=== PATIENT | male | born 1960 | race Caucasian/White ===

== ENCOUNTER → 2017-09-02 | Outpatient (CLI) | payer BC ==
[2017-09-02 12:44] LABS: ABSOLUTE BASOPHILS # (AUTO) 0.1 10^3/uL (0.0-0.2); ABSOLUTE EOSINOPHILS # (AUTO) 0.5 10^3/uL (0.0-0.6); ABSOLUTE LYMPHOCYTES (AUTO) 2.2 10^3/uL (0.5-4.7); ABSOLUTE MONOCYTES (AUTO) 0.7 10^3/uL (0.1-1.4); ABSOLUTE NEUT (AUTO) 4.3 10^3/uL (1.7-8.2); BASOPHILS % (AUTO) 1.4 % (0-2); HEMATOCRIT 46.8 % (37.9-51.0); HEMOGLOBIN 15.9 g/dL (13.5-17.0); LYMPHOCYTES % (AUTO) 28.6 % (13-45); MEAN CORPUSCULAR HEMOGLOBIN 32.5 pg (27.0-33.4); MEAN CORPUSCULAR VOLUME 96 fl (80-97); MONOCYTES % (AUTO) 8.9 % (3-13); PLATELET COUNT 288 10^3/uL (150-450); RED CELL DISTRIBUTION WIDTH 13.9 % (11.5-14.0); SEGMENTED NEUTROPHILS % (AUTO) 55.1 % (42-78); TOTAL CELLS COUNTED % (AUTO) 100 %; WHITE BLOOD COUNT 7.8 10^3/uL (4.0-10.5)
[2017-09-02 12:59] LABS: APPEARANCE,URINE CLEAR; BILIRUBIN,URINE NEGATIVE (NEGATIVE); COLOR,URINE YELLOW; GLUCOSE, URINE NEGATIVE (NEGATIVE); KETONES,URINE NEGATIVE (NEGATIVE); LEUKOCYTE ESTERASE,URINE NEGATIVE (NEGATIVE); NITRITE,URINE NEGATIVE (NEGATIVE); PROTEIN,URINE NEGATIVE (NEGATIVE); URINE SPECIFIC GRAVITY 1.005; UROBILINOGEN,URINE NEGATIVE mg/dL (<2.0)
[2017-09-02 13:07] LABS: ANION GAP 9 (5-19); BLOOD UREA NITROGEN 7 mg/dL (7-20); CALCIUM 9.8 mg/dL (8.4-10.2); CARBON DIOXIDE 28 mmol/L (22-30); CHLORIDE 104 mmol/L (98-107); GLUCOSE 86 mg/dL (75-110); POTASSIUM 5.3 mmol/L (3.6-5.0); SODIUM 140.6 mmol/L (137-145)
--- NOTE | 2017-09-02 13:35 | RADIOLOGY REPORT (SQ) ---
EXAM DESCRIPTION: CHEST PA/LATERAL COMPLETED DATE/TIME: 09/02/2017 12:22 pm REASON FOR STUDY: PRE OP COMPARISON: None. EXAM PARAMETERS: NUMBER OF VIEWS: two views TECHNIQUE: Digital Frontal and Lateral radiographic views of the chest acquired. RADIATION DOSE: NA LIMITATIONS: none FINDINGS: LUNGS AND PLEURA: No opacities, masses or pneumothorax. No pleural effusion. MEDIASTINUM AND HILAR STRUCTURES: No masses or contour abnormalities. HEART AND VASCULAR STRUCTURES: Heart normal size. No evidence for failure. BONES: No acute findings. HARDWARE: None in the chest. OTHER: No other significant finding. IMPRESSION: NO SIGNIFICANT RADIOGRAPHIC FINDING IN THE CHEST. TECHNICAL DOCUMENTATION: JOB ID: [id number] [employer]- All Rights Reserved Reading location - IP/workstation name: [email or web address]
--- NOTE | 2017-09-02 14:36 | EKG REPORT ---
SEVERITY:- NORMAL ECG - SINUS RHYTHM : Confirmed by: J Carlos Soto MD 02-Sep-2017 14:35:52
== END ==
LOC: OD 11:35
PROVIDERS: ATTEND Orthopaedic Surgery
DX: Z01.818 Encounter for other preprocedural examination (principal)
CPT/HCPCS: 36415; 71046; 80048; 81001; 85025; 93005; 93010

== ENCOUNTER 2017-10-30 13:15 | Emergency (ER) | payer SELFPAY ==
--- NOTE | 2017-10-30 13:51 | ER Document Report ---
ED General - General Mode of Arrival: Ambulatory Information source: Patient TRAVEL OUTSIDE OF THE [place] IN LAST 30 DAYS: No <SORAYA MYERS - Last Filed: 10/30/17 16:00> <CHERRIE EVANS - Last Filed: 10/30/17 16:20> - General Chief Complaint: Sunburn Stated Complaint: SKIN ISSUES Time Seen by Provider: 10/30/17 13:41 Notes: 57 y.o male presents to the ED with sunburn to his bilateral lower extremities. He states that Thursday he was out in the sun all day holding a sign for his work and got burned to his legs. He states this was the first time he wore shorts to work because it was nice and denies taking any medications that would make his skin sensitive to the sun. He denies trying to relieve his sx with ibuprofen or lotions. He denies being able to take a shower or bath because even the water is too painful. He notes some blisters that have already popped and a larger blister to his RLE above the knee. Pt denies any hx of DM, kidney issues or ulcers. (SORAYA MYERS) - Related Data Allergies/Adverse Reactions: No Known Allergies Allergy (Unverified 10/30/17 13:16) Past Medical History - General Information source: Patient - Social History Smoking Status: Current Every Day Smoker Chew tobacco use (# tins/day): No Smoking Education Provided: Yes Frequency of alcohol use: Occasional Drug Abuse: Marijuana Occupation: holds sign outside <SORAYA MYERS - Last Filed: 10/30/17 16:00> - Social History Family History: Reviewed & Not Pertinent <CHERRIE EVANS - Last Filed: 10/30/17 16:20> Review of Systems - Review of Systems Skin: Other - sunburn with blisters <SORAYA MYERS - Last Filed: 10/30/17 16:00> Physical Exam <SORAYA MYERS - Last Filed: 10/30/17 16:00> <CHERRIE EVANS - Last Filed: 10/30/17 16:20> - Vital signs Vitals: Temp Pulse Resp BP Pulse Ox 97.7 F 78 18 133/86 H 98 10/30/17 13:20 10/30/17 13:20 10/30/17 13:20 10/30/17 13:20 10/30/17 13:20 - Notes Notes: PHYSICAL EXAM GENERAL: Alert, interacts well. No acute distress. HEAD: Normocephalic, atraumatic. EYES: Pupils equal, round, and reactive to light. Extraocular movements intact. ENT: Oral mucosa moist, tongue midline. NECK: Full range of motion. Supple. Trachea midline. PSYCH: Normal affect, normal mood. SKIN: Warm, dry, normal turgor. No rashes or lesions noted. Erythema with dark demarcation that stops just below the bilateral knees and above the bilateral ankles consistent with clothing. Sunburn tapers off to the left side of both legs. Erythema is less severe posteriorly. sunburn to LLE with 1st degree burn and 2nd degree burn to RT leg. Small blisters to pt's RT leg, One larger blister , approximately 1.5cm clear fluid filled blister just above his RT patella. Negative nikolsky sign. (SORAYA MYERS) Course <SORAYA MYERS - Last Filed: 10/30/17 16:00> <CHERRIE EVANS - Last Filed: 10/30/17 16:20> - Re-evaluation Re-evalutation: 10/30/17 13:59 There is some blistering to the skin over top of the right patella, no evidence of infection, no evidence of secondary process such as Raygoza-Palomo syndrome. Erythema is limited slowly to the areas of sunburn. Patient is encouraged to use lotions particularly once containing topical anesthetic such as lidocaine or benzocaine. Patient states he cannot afford to buy any lotions or anything else to treat this. Patient actually will be given Dermoplast spray which is a benzocaine spray from here to use on his legs to help decrease some of the pain. (CHERRIE EVANS) - Vital Signs Vital signs: Temp Pulse Resp BP Pulse Ox 98.0 F 74 18 120/76 96 10/30/17 14:57 10/30/17 14:57 10/30/17 14:57 10/30/17 14:57 10/30/17 14:57 Discharge <SORAYA MYERS - Last Filed: 10/30/17 16:00> <CHERRIE EVANS - Last Filed: 10/30/17 16:20> - Discharge Clinical Impression: Sunburn, Sunburn, blistering Condition: Stable Disposition: HOME, SELF-CARE Additional Instructions: Please use the numbing spray that we provided you up to every 4 hours. Do not inhale the spray. Please apply lotion to your legs at least twice a day to keep this ongoing moisturized. Please return to the emergency department for any new or concerning symptoms. Referrals: [facility] [Provider Group] - Follow up as needed Scribe Attestation: 10/30/17 16:20 I personally performed the services described in the documentation, reviewed and edited the documentation which was dictated to the scribe in my presence, and it accurately records my words and actions. (CHERRIE EVANS) Scribe Documentation - Scribe Written by Khari:: Khari Garnica [id number] 10/30/17 acting as scribe for :: Georgi <SORAYA MYERS - Last Filed: 10/30/17 16:00>
[2017-10-30] MEDS ORDERED: BENZOCAINE/MENTHOL AEROSOL SPRAY 56 ML TOP ONE (13:59)
[2017-10-30 15:03] VITALS: BP 120/76
== END 2017-10-30 15:13 | disposition home or self-care (01) ==
LOC: ER 13:15
DX: L55.1 Sunburn of second degree (principal); F17.200 Nicotine dependence, unspecified, uncomplicated
CPT/HCPCS: 99282; J3490

== ENCOUNTER → 2017-12-29 | Outpatient (CLI) | payer MEDICAID ==
[2017-12-29 17:48] LABS: ABSOLUTE BASOPHILS # (AUTO) 0.2 10^3/uL (0.0-0.2); ABSOLUTE EOSINOPHILS # (AUTO) 0.3 10^3/uL (0.0-0.6); ABSOLUTE LYMPHOCYTES (AUTO) 2.2 10^3/uL (0.5-4.7); ABSOLUTE MONOCYTES (AUTO) 0.6 10^3/uL (0.1-1.4); ABSOLUTE NEUT (AUTO) 3.9 10^3/uL (1.7-8.2); BASOPHILS % (AUTO) 2.3 % (0-2); EOSINOPHILS % (AUTO) 4.3 % (0-6); HEMATOCRIT 44.7 % (37.9-51.0); HEMOGLOBIN 15.4 g/dL (13.5-17.0); LYMPHOCYTES % (AUTO) 30.4 % (13-45); MEAN CORPUSCULAR HEMOGLOBIN 32.5 pg (27.0-33.4); MEAN CORPUSCULAR HGB CONC 34.4 g/dL (32.0-36.0); MEAN CORPUSCULAR VOLUME 95 fl (80-97); MONOCYTES % (AUTO) 7.7 % (3-13); PLATELET COUNT 212 10^3/uL (150-450); RED BLOOD COUNT 4.73 10^6/uL (4.35-5.55); RED CELL DISTRIBUTION WIDTH 13.4 % (11.5-14.0); SEGMENTED NEUTROPHILS % (AUTO) 55.3 % (42-78); TOTAL CELLS COUNTED % (AUTO) 100 %; WHITE BLOOD COUNT 7.1 10^3/uL (4.0-10.5)
[2017-12-29 17:53] LABS: APPEARANCE,URINE CLEAR; BILIRUBIN,URINE NEGATIVE (NEGATIVE); COLOR,URINE YELLOW; GLUCOSE, URINE NEGATIVE (NEGATIVE); KETONES,URINE TRACE mg/dL (NEGATIVE); LEUKOCYTE ESTERASE,URINE NEGATIVE (NEGATIVE); NITRITE,URINE NEGATIVE (NEGATIVE); PROTEIN,URINE NEGATIVE (NEGATIVE); URINE SPECIFIC GRAVITY 1.016
[2017-12-29 18:17] LABS: ANION GAP 8 (5-19); BLOOD UREA NITROGEN 11 mg/dL (7-20); CALCIUM 9.5 mg/dL (8.4-10.2); CARBON DIOXIDE 27 mmol/L (22-30); CHLORIDE 104 mmol/L (98-107); GLUCOSE 87 mg/dL (75-110); POTASSIUM 4.3 mmol/L (3.6-5.0); SODIUM 138.9 mmol/L (137-145)
--- NOTE | 2017-12-29 18:21 | RADIOLOGY REPORT (SQ) ---
EXAM DESCRIPTION: CHEST PA/LATERAL COMPLETED DATE/TIME: 12/29/2017 5:29 pm REASON FOR STUDY: PRE-OP COMPARISON: August 2017 EXAM PARAMETERS: NUMBER OF VIEWS: two views TECHNIQUE: Digital Frontal and Lateral radiographic views of the chest acquired. RADIATION DOSE: NA LIMITATIONS: none FINDINGS: LUNGS AND PLEURA: No opacities, masses or pneumothorax. No pleural effusion. There is a m ild nonspecific prominence of interstitial markings. There is evidence for obstructive lung disease. MEDIASTINUM AND HILAR STRUCTURES: No masses or contour abnormalities. HEART AND VASCULAR STRUCTURES: Heart normal size. No evidence for failure. BONES: No acute findings. HARDWARE: None in the chest. OTHER: No other significant finding. IMPRESSION: No significant interval change. No acute findings. Other findings as noted above. TECHNICAL DOCUMENTATION: JOB ID: [id number] [employer]- All Rights Reserved Reading location - IP/workstation name: [email or web address]
--- NOTE | 2017-12-30 00:16 | EKG REPORT ---
SEVERITY:- NORMAL ECG - SINUS RHYTHM : Confirmed by: Mia Bocanegra MD 30-Dec-2017 00:15:35
== END ==
LOC: OD 16:47
PROVIDERS: ATTEND Orthopaedic Surgery
DX: Z01.810 Encounter for preprocedural cardiovascular examination (principal); Z01.812 Encounter for preprocedural laboratory examination; Z01.818 Encounter for other preprocedural examination
CPT/HCPCS: 36415; 71046; 80048; 81001; 85025; 93005; 93010

== ENCOUNTER 2018-01-04 05:21 | Inpatient (IN) | payer MEDICAID ==
[~2018-01-04 05:21] MED LIST: BUPIVACAINE INJ/PF LIPOSOME/PF 266 MG/20 ML SDV INJ PRN; CEFAZOLIN INJ 1 GM VIAL IV PRN; IBUPROFEN 800 MG/NS 250 ML IV PRN; LACTATED RINGERS 1000 ML IV PRN; LANSOPRAZOLE 15 MG TAB.RAP.DR PO PRN; LIDOCAINE 0.5% INJ-PF (5 MG/ML) 50 ML SDV SUBCUT PRN; OXYCODONE HCL SR 10 MG TABLET PO PRN; RINGERS SOLUTION,LACTATED 500 ML IV PRN; SCOPOLAMINE HYDROBROMIDE 1.5 MG PATCH.TD72 TOP PRN; VANCOMYCIN HCL 1,000 MG in DEXTROSE 5%-WATER 250 ML IV PRN
[2018-01-04] MEDS ORDERED: FENTANYL CITRATE INJ/PF 100 MCG/2 ML AMPUL ONE ×2 (06:52→08:07)
[2018-01-04] MEDS ORDERED: DEXMEDETOMIDINE INJ 80 MCG/20 ML VIAL IV ONE (06:53)
[2018-01-04] MEDS ORDERED: PROPOFOL INJ 200 MG/20 ML VIAL IV ONE (06:53)
[2018-01-04] MEDS ORDERED: THROMBIN (BOVINE) 5000 UNIT EPITAXIS KIT ONE (06:53)
[2018-01-04] MEDS ORDERED: MIDAZOLAM 2 MG/2 ML INJ ONE ×2 (06:53→07:42)
[2018-01-04] MEDS ORDERED: ACETAMINOPHEN 1,000 MG/100 ML RTUPB IV ONE (06:53)
[2018-01-04] MEDS ORDERED: TRANEXAMIC ACID INJ/PF 1,000 MG/10 ML SDV IV ONE ×2 (06:53→09:52)
[2018-01-04] MEDS ORDERED: ONDANSETRON HCL INJ/PF 4 MG/2 ML SDV ONE (06:53)
[2018-01-04] MEDS ORDERED: THROMBIN (BOVINE) TOPICAL 20000 UNIT VIAL ONE (06:53)
[2018-01-04] MEDS ORDERED: BUPIVACAINE INJ/PF LIPOSOME/PF 266 MG/20 ML SDV ONE (06:54)
[2018-01-04] MEDS ORDERED: BUPIVACAINE HCL/DEX-WATER/PF 15 MG/2 ML AMPULE ONE (07:06)
[2018-01-04] MEDS ORDERED: ALBUTEROL SULFATE 0.083% NEB 2.5 MG/3 ML AMPUL NEB ONE (07:06)
[2018-01-04] MEDS ORDERED: EPHEDRINE SULFATE INJ 50 MG/1 ML AMPULE ONE (07:42)
[2018-01-04] MEDS ORDERED: MORPHINE SULFATE 10 MG/ML INJ ONE (08:07)
[2018-01-04] MEDS ORDERED: DIPHENHYDRAMINE HCL 50 MG/ML VIAL IV PRN ×2 (08:21→09:19)
[2018-01-04] MEDS ORDERED: OXYCODONE-ACETAMINOPHEN 5-325 MG TABLET PO PRN ×2 (08:21)
[2018-01-04] MEDS ORDERED: PROMETHAZINE HCL INJ 25 MG/1 ML VIAL IV PRN ×2 (08:21)
[2018-01-04] MEDS ORDERED: MEPERIDINE HCL/PF INJ 25 MG/1 ML DISP.SYRIN IV PRN (08:21)
[2018-01-04] MEDS ORDERED: ONDANSETRON HCL INJ/PF 4 MG/2 ML SDV IV PRN ×2 (08:21→09:19)
[2018-01-04] MEDS ORDERED: MORPHINE SULFATE 10 MG/ML INJ IV PRN ×3 (08:21→09:19)
[2018-01-04] MEDS ORDERED: FENTANYL CITRATE INJ/PF 100 MCG/2 ML AMPUL IV PRN ×3 (08:21)
[2018-01-04] MEDS ORDERED: ZOLPIDEM TARTRATE 5 MG TABLET PO PRN (09:19)
[2018-01-04] MEDS ORDERED: RINGERS SOLUTION,LACTATED 1,000 ML IV PRN (09:19)
[2018-01-04] MEDS ORDERED: ONDANSETRON 4 MG TAB.RAPDIS PO PRN (09:19)
[2018-01-04] MEDS ORDERED: MAG HYDROX/AL HYDROX/SIMETH SUSP 30 ML UDCUP PO PRN (09:19)
[2018-01-04] MEDS ORDERED: MORPHINE SULFATE 10 MG/ML INJ IM PRN (09:19)
[2018-01-04] MEDS ORDERED: ACETAMINOPHEN 325 MG TABLET PO PRN (09:19)
--- NOTE | 2018-01-04 09:19 | Operative Report ---
Operative Report DATE OF SURGERY: 01/04/18 PREOPERATIVE DIAGNOSIS: Status post open reduction internal fixation right proximal femur fracture with posttraumatic arthrosis OPERATION: Right hip conversion arthroplasty. Sciatic neural lysis SURGEON: GERONIMO HORNER ANESTHESIA: GA TISSUE REMOVED OR ALTERED: Cultures 2 to microbiology. Bone to pathology. Implant to CSS ESTIMATED BLOOD LOSS: 200 PROCEDURE: Implants used: Tate modular protestant stem 20 mm x 155 mm, 23 standard proximal body, 36 mm chrome cobalt head +5 neck, Tate hemispherical acetabular shell 60 mm, 36 mm flat cross-link polyethylene liner With the patient in a left lateral decubitus position on the operative table the right lower extremity hindquarter prepped and draped in a sterile fashion. A curvilinear incision was made incorporating a previous lateral approach to the proximal femur. Sharp dissection used to carry the incision through the iliotibial band. The underlying vastus lateralis is elevated anteriorly. The sciatic nerve is traced from the sciatic notch down to the gluteal sling. The nerve is protected throughout the case. The underlying plate is visible. Cultures are sent of the soft tissue surrounding the plate. There are 4 bicortical screws holding the plate in place. 3 of these are uneventfully removed with screwdrivers. One the head is broken. Subsequently the proximal screw was removed as is the plate. The broken screws is trephined out. The femoral head is dislocated and transected using an oscillating saw. Attention was next turned to the acetabulum. There is a superior read rim defect. Soft tissues cleared off the rim the osteotomy using a sharp blade. Subsequently asked times. Using a series hemispherical reamers until a 60 mm reamer is seated. A 60 mm hemispherical cup was impacted into position and secured with one screw. A 36 mm flat cross-link polyethylene liner is placed. Attention is now turned to the femur. Access is gained to the femoral canal using a box osteotome through the piriformis fossa. The femur was then prepared using series of conical reamers until a 20 mm conical reamer seated. Subsequently Tate modular protestant stem 1 55 mm x 20 mm is impacted down the canal. The proximal femur is then prepared using the appropriate reamers. A trial reduction was now performed with a 23 mm standard proximal body and a 36 mm head. This leaves the leg slightly short compared to the contralateral extremity provides excellent anterior posterior stability. Trial implants were removed. The final 23 mm standard proximal body is impacted onto the trunnion and approximately 20 of anteversion. The 36 mm chrome cobalt head +5 neck extension is an impacted onto the trunnion. The hip was reduced. The wound is justin here with pulse lavage. Is subsequently closed in layers with interrupted Vicryl followed by debbie. A sterile compressive dressing was applied and the patient's return to PACU in satisfactory condition.
[2018-01-04] MEDS: FENTANYL CITRATE INJ/PF 100 MCG/2 ML AMPUL ONE ×2 (09:49→09:59)
[2018-01-04] MEDS: HYDROMORPHONE HCL INJ/PF 2 MG/ML AMPULE ONE ×2 (10:20→10:30)
--- NOTE | 2018-01-04 10:25 | RADIOLOGY REPORT (SQ) ---
EXAM DESCRIPTION: PELVIS AP COMPLETED DATE/TIME: 01/04/2018 10:05 am REASON FOR STUDY: Post Op Long Cassette in PACU M16.11 UNILATERAL PRIMARY OSTEOARTHRITIS, RIGHT HI P COMPARISON: None. NUMBER OF VIEWS: One view TECHNIQUE: Digital radiographic images of the pelvis post-procedure LIMITATIONS: None. FINDINGS: BONES: No worrisome or unexpected findings post-procedure. DEVICE: Right total hip replacement. Components of the device in appropriate location. SOFT TISSUES: No worrisome findings. Expected postoperative soft tissue changes. IMPRESSION: SATISFACTORY POSTOPERATIVE PELVIS. TECHNICAL DOCUMENTATION: JOB ID: [id number] [employer]- All Rights Reserved Reading location - IP/workstation name: [email or web address]
[2018-01-04] MEDS ORDERED: NICOTINE 21 MG/24 HR PATCH.TD24 TD ONE ×2 (11:30→18:00)
[2018-01-04] MEDS: MORPHINE SULFATE 10 MG/ML INJ IV PRN ×3 (13:32→21:05)
[2018-01-04] MEDS ORDERED: DEXAMETHASONE SOD PHOSPHATE INJ 4 MG/1 ML VIAL ONE (13:55)
[2018-01-04] MEDS ORDERED: SUCCINYLCHOLINE CHLORIDE INJ 200 MG/10 ML VIAL ONE (13:55)
[2018-01-04] MEDS: IBUPROFEN 800 MG in NORMAL SALINE 250 ML IV SCH (18:25)
[2018-01-04] MEDS: OXYCODONE HCL SR 10 MG TABLET PO SCH (21:07)
[2018-01-04] MEDS: PREGABALIN 75 MG CAPSULE PO SCH (21:08)
[2018-01-04] MEDS: PRENATAL VITAMIN W DHA CAPSULE PO SCH (21:22)
[2018-01-04] MEDS ORDERED: VANCOMYCIN HCL 1,000 MG in DEXTROSE 5%-WATER 250 ML IV ONE (21:30)
[2018-01-04] MEDS: SENNOSIDES/DOCUSATE 8.6-50 MG 1 EACH TABLET PO SCH (22:06)
[2018-01-05] MEDS: MORPHINE SULFATE 10 MG/ML INJ IV PRN ×3 (04:07→20:16)
[2018-01-05] MEDS: IBUPROFEN 800 MG in NORMAL SALINE 250 ML IV SCH ×3 (04:10→15:40)
[2018-01-05] MEDS: LANSOPRAZOLE 30 MG TAB.RAP.DR PO SCH (05:33)
--- NOTE | 2018-01-05 06:32 | PDOC PROGRESS REPORT ---
Subjective Progress Note for:: 01/05/18 Reason For Visit: M16.11 UNILATERAL PRIMARY OSTEOARTHRITIS, RIGHT HI 57-year-old white male with a posttraumatic osteoarthritis of the right hip postop day 1 status post conversion arthroplasty to total hip. Patient with issues of pain yesterday but seems to be much more comfortable this morning. Physical Exam Vital Signs: Temp Pulse Resp BP Pulse Ox 36.7 C 74 16 122/64 98 01/04/18 23:54 01/04/18 23:54 01/04/18 23:54 01/04/18 23:54 01/04/18 23:54 Intake & Output 01/03/18 01/04/18 01/05/18 06:59 06:59 06:59 Intake Total 500 6242 Output Total 6250 Balance 500 -8 Weight 70.6 kg General appearance: PRESENT: no acute distress, mild distress Head exam: PRESENT: normocephalic Respiratory exam: PRESENT: unlabored Cardiovascular exam: PRESENT: RRR Pulses: PRESENT: +1 pedal pulses bilateral Vascular exam: PRESENT: normal capillary refill GI/Abdominal exam: PRESENT: soft Rectal exam: PRESENT: deferred Extremities exam: PRESENT: other - Right hip dressing with minimal drainage. Small residual leg length inequality. Distal neurovascular examination is intact. Results Laboratory Results: 01/04/18 05:45 Blood Type A POSITIVE Antibody Screen NEGATIVE Impressions: Pelvis X-Ray 01/04/18 09:21 IMPRESSION: SATISFACTORY POSTOPERATIVE PELVIS. Status: Imported from PACS Assessment & Plan - Diagnosis (1) Arthritis of right hip Is this a current diagnosis for this admission?: Yes Plan: Patient will continue with physical therapy and weightbearing as tolerated amatory program. Anticipate discharge home tomorrow with home health services and DME - Time Time Spent with patient: 15-24 minutes Anticipated discharge: Home with Homehealth Within: within 24 hours
[2018-01-05 06:42] LABS: HEMATOCRIT 32.6 % (37.9-51.0); HEMOGLOBIN 11.4 g/dL (13.5-17.0); MEAN CORPUSCULAR HEMOGLOBIN 33.5 pg (27.0-33.4); MEAN CORPUSCULAR VOLUME 96 fl (80-97); PLATELET COUNT 175 10^3/uL (150-450); RED CELL DISTRIBUTION WIDTH 13.5 % (11.5-14.0); WHITE BLOOD COUNT 9.2 10^3/uL (4.0-10.5)
[2018-01-05 06:55] LABS: BLOOD UREA NITROGEN 8 mg/dL (7-20); CALCIUM 8.7 mg/dL (8.4-10.2); CARBON DIOXIDE 30 mmol/L (22-30); GLUCOSE 100 mg/dL (75-110); POTASSIUM 4.3 mmol/L (3.6-5.0)
[2018-01-05 07:01] LABS: CHLORIDE 106 mmol/L (98-107); SODIUM 140.1 mmol/L (137-145)
[2018-01-05 07:09] LABS: ANION GAP 4 (5-19)
[2018-01-05] MEDS: OXYCODONE HCL SR 10 MG TABLET PO SCH ×2 (10:43→21:40)
[2018-01-05] MEDS: NICOTINE 21 MG/24 HR PATCH.TD24 TD SCH (10:44)
[2018-01-05] MEDS: PRENATAL VITAMIN W DHA CAPSULE PO SCH (10:44)
[2018-01-05] MEDS: SENNOSIDES/DOCUSATE 8.6-50 MG 1 EACH TABLET PO SCH ×2 (10:44→19:06)
[2018-01-05] MEDS: ASPIRIN 81 MG TABLET, ENT COATED PO SCH (10:44)
[2018-01-05] MEDS: PREGABALIN 75 MG CAPSULE PO SCH ×2 (10:44→21:40)
[2018-01-05] MEDS: OXYCODONE HCL IR 5 MG TABLET PO PRN (15:39)
[2018-01-06] MEDS: OXYCODONE HCL IR 5 MG TABLET PO PRN ×4 (00:02→21:11)
[2018-01-06] MEDS: MORPHINE SULFATE 10 MG/ML INJ IV PRN ×3 (05:10→23:22)
[2018-01-06] MEDS: LANSOPRAZOLE 30 MG TAB.RAP.DR PO SCH (05:11)
[2018-01-06 06:31] LABS: HEMATOCRIT 31.1 % (37.9-51.0); HEMOGLOBIN 11.1 g/dL (13.5-17.0); MEAN CORPUSCULAR HEMOGLOBIN 33.8 pg (27.0-33.4); MEAN CORPUSCULAR HGB CONC 35.7 g/dL (32.0-36.0); MEAN CORPUSCULAR VOLUME 95 fl (80-97); PLATELET COUNT 163 10^3/uL (150-450); RED BLOOD COUNT 3.29 10^6/uL (4.35-5.55); RED CELL DISTRIBUTION WIDTH 13.7 % (11.5-14.0); WHITE BLOOD COUNT 9.7 10^3/uL (4.0-10.5)
[2018-01-06] MEDS: NICOTINE 21 MG/24 HR PATCH.TD24 TD SCH (09:15)
[2018-01-06] MEDS: PRENATAL VITAMIN W DHA CAPSULE PO SCH (09:16)
[2018-01-06] MEDS: SENNOSIDES/DOCUSATE 8.6-50 MG 1 EACH TABLET PO SCH ×2 (09:16→18:47)
[2018-01-06] MEDS: PREGABALIN 75 MG CAPSULE PO SCH ×2 (09:16→21:11)
[2018-01-06] MEDS: ASPIRIN 81 MG TABLET, ENT COATED PO SCH (09:16)
[2018-01-06] MEDS: OXYCODONE HCL SR 10 MG TABLET PO SCH (09:16)
[2018-01-06] MEDS: IBUPROFEN 800 MG in NORMAL SALINE 250 ML IV SCH ×3 (09:21)
[2018-01-07] MEDS: MORPHINE SULFATE 10 MG/ML INJ IV PRN ×5 (02:40→20:49)
[2018-01-07] MEDS: OXYCODONE HCL IR 5 MG TABLET PO PRN ×3 (04:35→18:37)
[2018-01-07] MEDS: LANSOPRAZOLE 30 MG TAB.RAP.DR PO SCH (05:26)
--- NOTE | 2018-01-07 06:43 | PDOC PROGRESS REPORT ---
Subjective Progress Note for:: 01/07/18 Reason For Visit: M16.11 UNILATERAL PRIMARY OSTEOARTHRITIS, RIGHT HI 57-year-old white male postop day 3 status post conversion right hip arthroplasty. Physical Exam Vital Signs: Temp Pulse Resp BP Pulse Ox 38.0 C 83 13 119/67 99 01/06/18 19:36 01/06/18 19:36 01/06/18 19:36 01/06/18 19:36 01/06/18 19:36 Intake & Output 01/05/18 01/06/18 01/07/18 06:59 06:59 06:59 Intake Total 6242 5 9 Output Total 6250 2099 -8 69 Weight 70.6 kg 74.6 kg 72.4 kg General appearance: PRESENT: no acute distress, mild distress Head exam: PRESENT: normocephalic Respiratory exam: PRESENT: unlabored Cardiovascular exam: PRESENT: RRR Pulses: PRESENT: +1 pedal pulses bilateral Vascular exam: PRESENT: normal capillary refill GI/Abdominal exam: PRESENT: soft Rectal exam: PRESENT: deferred Extremities exam: PRESENT: other - Right hip dressing clean dry and intact. Leg lengths are equal. Distal neurovascular examination is intact. Neurological exam: PRESENT: alert, awake, oriented to person, oriented to place , oriented to time, oriented to situation, CN II-XII grossly intact. ABSENT: motor sensory deficit Psychiatric exam: PRESENT: appropriate affect, normal mood. ABSENT: homicidal ideation, suicidal ideation Skin exam: PRESENT: dry, intact, warm. ABSENT: cyanosis, rash Results Laboratory Results: 01/06/18 05:52 01/05/18 06:03 Impressions: Pelvis X-Ray 01/04/18 09:21 IMPRESSION: SATISFACTORY POSTOPERATIVE PELVIS. Status: Imported from PACS Assessment & Plan - Diagnosis (1) Arthritis of right hip Is this a current diagnosis for this admission?: Yes Plan: Patient making progress with physical therapy. Awaiting alf facility placement. H&P has been on the chart since the time of admission. - Time Time Spent with patient: 15-24 minutes Anticipated discharge: SNF Within: when bed available
--- NOTE | 2018-01-07 06:48 | PDOC TRANSFER SUMMARY ---
General - Admit/Disc Date/PCP Admission Date/Primary Care Provider: 01/04/18 05:21 ALLI ALMARAZ PA-C Discharge Date: 01/07/18 - Discharge Diagnosis (1) Arthritis of right hip Is this a current diagnosis for this admission?: Yes - Additional Information Resuscitation Status: Full Code Discharge Diet: As Tolerated, Regular Discharge Activity: Balance Activity w/Rest, No Driving, No tub bath Home Medications: Aspirin [Ecotrin 81 mg EC Tablet] 81 mg PO DAILY tabec 01/07/18 Nicotine [Nicoderm 21 mg/24 Hr Transderm Patch] 1 each TD DAILY patch.td24 07/26 Oxycodone HCl [Oxy-Ir 5 mg Tablet] 5 mg PO Q6HP PRN tablet 01/07/18 History of Present Illness Admission Date/PCP: 01/04/18 05:21 ALLI ALMARAZ PA-C History of Present Illness: JERARDO REINA is a 57 year old male Patient is a 57-year-old white male status post open reduction internal fixation of her right hip fracture in the distant past with subsequent development of pain and functional disability secondary to posttraumatic arthritis. Patient is admitted for elective conversion arthroplasty. Hospital Course Hospital Course: Patient is admitted through the operating where he undergoes a rather complicated right hip arthroplasty that involves removal of pre-existing hardware. He tolerates the procedure without any postoperative complications. Patient seen by physical therapy and begun on a weightbearing as tolerated ambulatory program. Physical Exam Vital Signs: Temp Pulse Resp BP Pulse Ox 38.0 C 83 13 119/67 99 01/06/18 19:36 01/06/18 19:36 01/06/18 19:36 01/06/18 19:36 01/06/18 19:36 Intake & Output 01/05/18 01/06/18 01/07/18 06:59 06:59 06:59 Intake Total 5803 5 9 Output Total 8360 2099 1999 Balance -8 -35 69 Weight 70.6 kg 74.6 kg 72.4 kg General appearance: PRESENT: no acute distress, mild distress Head exam: PRESENT: normocephalic Respiratory exam: PRESENT: unlabored Cardiovascular exam: PRESENT: RRR Pulses: PRESENT: +1 pedal pulses bilateral Vascular exam: PRESENT: normal capillary refill GI/Abdominal exam: PRESENT: soft Rectal exam: PRESENT: deferred Musculoskeletal exam: PRESENT: other - Right hip dressing clean dry and intact. Leg lengths maintain a slight inequality right shorter than left. Distal neurovascular examination is intact. Neurological exam: PRESENT: alert, awake, oriented to person, oriented to place , oriented to time, oriented to situation. ABSENT: motor sensory deficit Psychiatric exam: PRESENT: appropriate affect, normal mood. ABSENT: homicidal ideation, suicidal ideation Skin exam: PRESENT: dry, intact, warm. ABSENT: cyanosis, rash Results Laboratory Results: 01/05/18 06:03 Impressions: Pelvis X-Ray 01/04/18 09:21 IMPRESSION: SATISFACTORY POSTOPERATIVE PELVIS. Status: Imported from PACS Transfer Plan - Disposition Transfer Plan: Patient to be transferred to a fpc facility when bed is available. - Time Spent with Patient Time spent with patient: Less than 30 Minutes Qualifiers - * PATIENT BEING DISCHARGED WITH ANY OF THE FOLLOWING DIAGNOSIS: No VTE patient discharged on overlapping Therapy?: Yes
[2018-01-07 06:54] LABS: HEMATOCRIT 33.4 % (37.9-51.0); HEMOGLOBIN 11.6 g/dL (13.5-17.0); MEAN CORPUSCULAR HEMOGLOBIN 33.1 pg (27.0-33.4); MEAN CORPUSCULAR HGB CONC 34.8 g/dL (32.0-36.0); MEAN CORPUSCULAR VOLUME 95 fl (80-97); PLATELET COUNT 201 10^3/uL (150-450); RED BLOOD COUNT 3.51 10^6/uL (4.35-5.55); RED CELL DISTRIBUTION WIDTH 13.4 % (11.5-14.0)
[2018-01-07] MEDS: NICOTINE 21 MG/24 HR PATCH.TD24 TD SCH (10:41)
[2018-01-07] MEDS: ASPIRIN 81 MG TABLET, ENT COATED PO SCH (10:41)
[2018-01-07] MEDS: PRENATAL VITAMIN W DHA CAPSULE PO SCH (10:41)
[2018-01-07] MEDS: SENNOSIDES/DOCUSATE 8.6-50 MG 1 EACH TABLET PO SCH ×2 (10:41→18:38)
[2018-01-07] MEDS: PREGABALIN 75 MG CAPSULE PO SCH ×2 (10:41→21:49)
[2018-01-08] MEDS: OXYCODONE HCL IR 5 MG TABLET PO PRN ×2 (00:29→08:17)
[2018-01-08] MEDS: LANSOPRAZOLE 30 MG TAB.RAP.DR PO SCH (05:40)
[2018-01-08] MEDS: MORPHINE SULFATE 10 MG/ML INJ IV PRN ×3 (08:19→13:20)
[2018-01-08] MEDS: ASPIRIN 81 MG TABLET, ENT COATED PO SCH (10:14)
[2018-01-08] MEDS: PREGABALIN 75 MG CAPSULE PO SCH (10:14)
[2018-01-08] MEDS: SENNOSIDES/DOCUSATE 8.6-50 MG 1 EACH TABLET PO SCH (10:15)
[2018-01-08] MEDS: PRENATAL VITAMIN W DHA CAPSULE PO SCH (10:15)
[2018-01-08] MEDS: NICOTINE 21 MG/24 HR PATCH.TD24 TD SCH (10:16)
[2018-01-08 12:08] VITALS: BP 115/77
== END 2018-01-08 14:15 | DRG 468 ==
LOC: INOR 05:21 → 4S 11:20
PROVIDERS: ADMIT Orthopaedic Surgery; ATTEND Orthopaedic Surgery
PROC: 0SP90JZ Removal of Synthetic Substitute from Right Hip Joint, Open Approach (ICD-10-PCS; 2018-01-04)
PROC: 0SR902A Replacement of Right Hip Joint with Metal on Polyethylene Synthetic Substitute, Uncemented, Open Approach (ICD-10-PCS; principal; 2018-01-04 07:30)
DX: T84.090A Other mechanical complication of internal right hip prosthesis, initial encounter (principal); M16.11 Unilateral primary osteoarthritis, right hip; F17.210 Nicotine dependence, cigarettes, uncomplicated; Z96.641 Presence of right artificial hip joint
CPT/HCPCS: 01214; 36415; 72170; 80048; 85027; 86850; 86900; 86901; 87070; 87075; 87205; 88304; 88311; 94799; C1776; C9290; J0131; J0330; J0690; J1100; J1170; J1200; J1741; J2250; J2270; J2405; J2704; J3010; J3370; J3490; J7050; J7060